=== PATIENT | male | born 1955 | race African-American/Black ===

== ENCOUNTER 2023-04-25 02:03 | Emergency (ER) | payer BC, MEDICAID ==
[~2023-04-25] VITALS: Ht 172.7 cm; Wt 75.0 kg
[2023-04-25] MEDS ORDERED: KETOROLAC 30MG/ML VIAL IV STA (02:55)
[2023-04-25] MEDS ORDERED: ONDANSETRON HCL 4MG/2ML INJ IV STA (02:55)
[2023-04-25] MEDS ORDERED: SODIUM CHLORIDE 0.9% 1,000 ML IV ONE (03:00)
[2023-04-25 04:26] LABS: BASOPHILS % 0.3 % (0.0-2.0); EOSINOPHILS % 1.1 % (0.0-5.0); HEMATOCRIT. 39.1 % (42.0-52.0); HEMOGLOBIN. 13.3 g/dL (14.0-18.0); LYMPHOCYTES % 21.1 % (20.0-50.0); MEAN CORPUSCULAR HEMOGLOBIN 32.9 pg (28.0-32.0); MEAN CORPUSCULAR VOLUME 96.8 fL (80.0-94.0); MONOCYTES % 6.3 % (2.0-8.0); NEUTROPHILS % 71.2 % (40.0-76.0); PLATELET 159 x1000/uL (130-400); RED BLOOD CELL COUNT 4.04 mill/uL (4.7-6.1); RED CELL DISTRIBUTION WIDTH 14.5 % (11.6-14.6)
[2023-04-25 04:33] LABS: CHLORIDE 109 mEq/L (98-107)
[2023-04-25 04:34] LABS: PROTHROMBIN TIME 10.9 sec (9.6-11.0)
[2023-04-25] MEDS ORDERED: SENN-257 MT (06:07)
[2023-04-25] MEDS ORDERED: POLY17PO3 MT (06:07)
[2023-04-25 08:34] VITALS: BP 120/88
== END 2023-04-25 08:36 | disposition home or self-care (01) ==
LOC: ER 02:30
DX: K59.00 Constipation, unspecified (principal); E86.0 Dehydration; K57.90 Diverticulosis of intestine, part unspecified, without perforation or abscess without bleeding; I10 Essential (primary) hypertension
CPT/HCPCS: 36415; 71045; 74176; 80053; 83690; 84484; 85025; 85610; 86850; 86900; 86901; 93005; 96374; 96375; 99285; J1885; J2405; 96361